=== PATIENT | male | born 1945 | race Caucasian/White ===

== ENCOUNTER 2016-10-04 14:24 | Emergency (ER) | payer MEDICARE, OTHER ==
[~2016-10-04] VITALS: Ht 167.6 cm; Wt 81.4 kg
[~2016-10-04 14:24] MED LIST: AMLO10TA79 PO; CALCITROL PO; CALCIUM 500+VI1 EACH PO; CITA20TA2 PO; DPAS20025 PO; FURO20TA PO; LIP20 PO; MULT1POW PO; [UNRECOGNIZED DRUG - CODE] PO; [UNRECOGNIZED DRUG - OTHER] PO
[2016-10-04 14:27] VITALS: BP 160/76; PULSE 80; RESP 16; O2SAT 99
--- NOTE | 2016-10-04 14:50 | ED.REPORT ---
HPI-Extremity Problem Upper Date of Service Oct 04, 2016 ED Provider: Himanshu Coburn MD Patient is a 71 year old male with a history of kidney failure on dialysis who presents to the ED complaining of R arm swelling onset one week ago. He has had similar symptoms previously but has never had swelling this bad for this long. He denies fever, nausea, vomiting, abdominal pain, or any other symptoms. Nursing Notes Stated Complaint: SWOLLEN R ARM Chief Complaint: Extremity Trauma Nursing Notes Reviewed: Yes Allergies: Coded Allergies: No Known Allergies (Unverified Allergy, Unknown, 10/04/16) Scheduled ([Occuvite Adult 50+]) 1 CAP PO DAILY ([Calcitrol]) 0.25 MCG PO 4X/WK ASA/Dipyrid-Expunged Drug, Do Not Renew! (ASA/Dipyrid-Expunged Drug, Do Not Renew!) 1 Ea Cap.er 1 CAP PO BID AmLODIPine-Expunged Drug, Do Not Renew! (AmLODIPine-Expunged Drug, Do Not Renew! ) 10 Mg Tablet 10 MG PO DAILY Atorvastatin-Expunged Drug, Do Not Renew! (Atorvastatin-Expunged Drug, Do Not Renew!) 20 Mg Tablet 10 MG PO DAILY For Cholesterol Management. Layo Carb/Vitamin D3-Expunged, Do Not Renew! (CALCIUM 500/VIT D 400-Expunged, Do Not Renew!) 1 Each Tablet 1 EACH PO DAILY Citalopram-Expunged Drug, Do Not Renew! (Citalopram-Expunged Drug, Do Not Renew! ) 20 Mg Tablet 20 MG PO DAILY Furosemide-Expunged Drug, Do Not Renew! (Furosemide-Expunged Drug, Do Not Renew! ) 20 Mg Tablet 40 MG PO DAILY Multivits/Iron Fum/Fa/D3/Lycop (Multi For Him Powder Pack) 1 Each Powd.pack 1 EACH PO DAILY hyDRALazine-Expunged Drug, Do Not Renew! (hyDRALazine-Expunged Drug, Do Not Renew!) 25 Mg Tablet 25 MG PO QID General Time Seen by MD: 14:50 Chief Complaint Other (Arm swelling R ) Hx Obtained From: Patient, Spouse Arrived By: Walk-in Onset Occurred: 1 week ago Past Medical History Past Medical History Notes: Dr. 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 GI: Denies: Abdominal pain, Nausea, Vomiting Physical Exam Initial Vital Signs Vital Signs (First) Date Time Temp Pulse Resp B/P Pulse Ox O2 Delivery O2 Flow Rate FiO2 10/04/16 14:27 37.2 80 16 160/76 99 Initial VS: Reviewed General/Constitutional: Well-developed, Well-nourished Head / Eyes: Atraumatic, Normocephalic Respiratory: No respiratory distress Abdomen / GI: Soft, Non-tender Skin: Warm, Dry, No cyanosis Neurologic: Alert, Oriented, Nonfocal Psychiatric: Mood/affect normal, Behavior normal, Normal thought content Upper Extremity / MS: Full range of motion Dramatic pitting edema starting at the R deltoid throughout the extremity. Re-Eval/Medical Decision Re-Evaluation/Progress : Time of Eval: 15:32 Re-Evaluation/Progress Note: Rechecked patient. Discussed plan for discharge with close follow up. Consultation : Referral / Consult Name: Ant Kohler MD Consulted With: Nephrology [employer]: Will see in office Note: Discussed patient's case. Office will contact. No further treatment needed. Counseled Regarding: Diagnosis, Need for follow-up, When/why to return to ED Discharge & Departure Impression: Primary Impression: Edema of upper extremity Disposition: Home Additional Instructions: We suspect that you have a narrow spot in your fistula. Dr. Mandujano will arrange for you to have a "fistulogram" in the coming days and if that is the case, he can arrange for pending the narrow spot either by himself or one of his colleagues. Follow-up right away if you develop fever, chills, sweats, redness or pain. Referrals: Russell Garza MD (PCP) CARDIOLOGY,[facility] (Family) Scribe Attestation Portions of this note were transcribed by Aramis Rice. I, Dr. Coburn personally performed the history, physical exam and medical decision-making; I reviewed and confirmed the accuracy of the information in the transcribed note. Signed by: Aramis Rice 10/04/16, 1610 copies to: Russell Garza MD, Kirk H MD Oct 04, 2016 14:50 ARAMIS RICE Oct 04, 2016 15:07
[2016-10-10] MEDS ORDERED: TELM20TA PO (16:04)
[2016-10-10] MEDS ORDERED: LISI10TA PO (16:04)
[2016-10-10] MEDS ORDERED: INSLIS SUBQ (16:04)
[2016-10-10] MEDS ORDERED: GLIM4TAB PO (16:04)
[2016-10-10] MEDS ORDERED: ATOR20TA PO (16:04)
[2016-10-10] MEDS ORDERED: FUR20 PO (16:04)
[2016-10-10] MEDS ORDERED: VIT1CAPS8 PO (16:04)
[2016-10-10] MEDS ORDERED: METO50TA3 PO (16:04)
[2016-10-10] MEDS ORDERED: HYDR-3939 PO (16:04)
[2016-10-10] MEDS ORDERED: ASPI-973 PO (16:04)
[2016-10-10] MEDS ORDERED: CITA20TA11 PO (16:04)
[2016-10-10] MEDS ORDERED: MULT1CAP33 PO (16:04)
[2016-10-10] MEDS ORDERED: ROSU5TAB PO (16:04)
[2016-10-10] MEDS ORDERED: AMLO10TA3 PO (16:04)
[2016-10-10] MEDS ORDERED: VIT1TABL83 PO (16:04)
[2016-10-10] MEDS ORDERED: METF-777 PO (16:04)
[2016-10-10] MEDS ORDERED: LEVO125T2 PO (16:04)
[2016-10-10] MEDS ORDERED: CALC-3 PO (16:04)
== END 2016-10-04 16:07 | disposition home or self-care (01) ==
LOC: SED 14:24
DX: R60.9 Edema, unspecified (principal); E11.29 Type 2 diabetes mellitus with other diabetic kidney complication; I10 Essential (primary) hypertension; N17.9 Acute kidney failure, unspecified; Z86.73 Personal history of transient ischemic attack (TIA), and cerebral infarction without residual deficits; Z95.1 Presence of aortocoronary bypass graft; Z99.2 Dependence on renal dialysis; Z87.891 Personal history of nicotine dependence; Z79.82 Long term (current) use of aspirin

== ENCOUNTER 2016-10-11 01:02 | Day surgery (SDC) | payer MEDICARE, OTHER ==
[~2016-10-11] VITALS: Ht 167.6 cm; Wt 78.0 kg
[2016-10-11] VITALS (9 sets, daily range): BP systolic 142–156; BP diastolic 56–70; PULSE 65–79; RESP 10–19; O2SAT 95–100
[~2016-10-11 01:02] MED LIST changes: +AMLO10TA3 PO; -AMLO10TA79 PO; +ASPI-973 PO; +ATOR20TA PO; +CALC-3 PO; -CALCITROL PO; -CALCIUM 500+VI1 EACH PO; +CITA20TA11 PO; -CITA20TA2 PO; -DPAS20025 PO; +FUR20 PO; -FURO20TA PO; +GLIM4TAB PO; +HYDR-3939 PO; +INSLIS SUBQ; +LEVO125T2 PO; -LIP20 PO; +LISI10TA PO; +METF-777 PO; +METO50TA3 PO; +MULT1CAP33 PO; -MULT1POW PO; +ROSU5TAB PO; +TELM20TA PO; +VIT1CAPS8 PO; +VIT1TABL83 PO; -[UNRECOGNIZED DRUG - CODE] PO; -[UNRECOGNIZED DRUG - OTHER] PO
[2016-10-11] MEDS ORDERED: Heparin 1,000 Unit/mL 10 mL Inj ONE ×2 (08:47→09:51)
[2016-10-11] MEDS ORDERED: Heparin 5,000 Units/500 mL NS Premix IV ONE ×2 (08:47→09:54)
[2016-10-11 08:52] LABS: BASOPHILS % (AUTO) 0.4 % (0-3); EOSINOPHILS % (AUTO) 1.9 % (0-5); Mean Corpuscular Hemoglobin 29.6 pg (27.0-35.0); Mean Corpuscular Volume 94.7 fL (81-100); NEUTROPHILS % (AUTO) 76.6 % (40-74); Platelet Count 177 bil/L (150-400)
[2016-10-11] MEDS ORDERED: 0.9% Sodium Chloride 500 ML ONE (09:16)
[2016-10-11] MEDS ORDERED: CeFAZolin 2 Gm/50 mL D5W Duplex Bag IV ONE (09:17)
[2016-10-11] MEDS ORDERED: [UNRECOGNIZED DRUG - CODE] BOTH_EYES (09:47)
[2016-10-11] MEDS ORDERED: NEPHVIT PO (09:47)
[2016-10-11] MEDS ORDERED: CARV6.252 PO (09:47)
[2016-10-11] MEDS ORDERED: CLOP75TA3 PO (09:47)
[2016-10-11] MEDS ORDERED: CALC500T9 PO (09:47)
[2016-10-11] MEDS ORDERED: fentaNYL-PF 50 mCg/mL 2 mL Inj ONE ×2 (09:49→10:28)
--- NOTE | 2016-10-11 14:15 | NUR ---
d/c summary mild oozing at purse string site. pt instructed to keep dressing clean and dry and to apply pressure and seek medical care if forearm site becomes more than an ooze. iv dc'd intact. all belongings remained with kevin. kevin to drive and remain with pt for 24 hours post procedure. all questions answered and pt agreed to understanding and to follow d/c instructions. f/u apt is in place with dr cisneros this next week.
--- NOTE | 2016-10-11 15:18 | DRSVH ---
PROCEDURE: ARTERIO VENOUS FISTULOGRAM (PNL) INDICATIONS: ESRD TECHNIQUE: 1. Conscious sedation for 60 minutes. 2. Antegrade access of the right upper extremity venous outflow. 3. Fistulogram performed in stations to the level of the SVC. 4. 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 5. Completion fistulogram. The indications, alternatives, benefits, risks, and complications of the procedure were explained to the patient.. Informed written consent was obtained and placed in the chart. The patient was megan t to the angiography suite, and conscious sedation was administered intravenously by retirement staff, while continuous cardiorespiratory monitoring was performed. Maximum sterile barrier technique was employed per standard protocol, including hand hygiene, cap, ma sk, sterile gown and gloves, and 2% chlorhexidine. One percent lidocaine was used to anesthetize the skin over the area of interest. Using a micropuncture kit the venous outflow was accessed in antegra de fashion. Fistulogram was performed in stations through the micropuncture sheath. An 035 wire was a dvanced with the tip in the SVC. The micropuncture sheath was exchanged for a short 6 Vietnamese sheath. Balloon angioplasty was performed with a 8 mm x 40 mm high-pressure balloon at a focal high-grade courtney nosis in the brachiocephalic vein. Completion fistulogram was performed. The balloon was removed, the sheath was removed, and hemostasis was achieved. COMPARISON: None. FINDINGS: Initial fistulogram demonstrates a patent arteriovenous anastomosis. 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 No stenosis o r occlusion. No aneurysmal dilatation. IMPRESSION: 1. Status post balloon angioplasty of a focal high-grade stenosis within the right brachiocephalic ve in. No residual stenosis remains. Dictated by: Juanita Andrea M.D. on 10/11/2016 at 15:17 Approved by: Juanita Andrea M.D. on 10/11/2016 at 15:17
== END 2016-10-11 23:59 | disposition home or self-care (01) ==
LOC: SPI 01:02
PROVIDERS: ATTEND Radiology Vascular & Interventional Radiology
DX: I87.1 Compression of vein (principal); I12.0 Hypertensive chronic kidney disease with stage 5 chronic kidney disease or end stage renal disease; E11.22 Type 2 diabetes mellitus with diabetic chronic kidney disease; N18.6 End stage renal disease; E78.5 Hyperlipidemia, unspecified; Z95.1 Presence of aortocoronary bypass graft; Z87.891 Personal history of nicotine dependence; Z79.82 Long term (current) use of aspirin; Z79.4 Long term (current) use of insulin; Z79.84 Long term (current) use of oral hypoglycemic drugs; Z99.2 Dependence on renal dialysis; I25.10 Atherosclerotic heart disease of native coronary artery without angina pectoris; I35.0 Nonrheumatic aortic (valve) stenosis
CPT/HCPCS: 36415; 36901; 80048; 85025; 85610; 85730; 99152; 99153; C1725; C1769; C1894; J0690; J1644; J2250; J3010; J7040; Q9967